=== PATIENT | female | born 1975 ===

== ENCOUNTER 2024-03-26 10:51 | Emergency (ER) | payer BC, SELFPAY ==
[2024-03-26] VITALS (12 sets, daily range): BP systolic 119–144; BP diastolic 78–97; PULSE 78–92; RESP 15–20; TEMP 36.6; O2SAT 97–100
--- NOTE | ~2024-03-26 | XR_ITS ---
EXAMINATION: XR chest 1V portable DATE: 03/26/2024 11:18 INDICATION: Chest pain. TECHNIQUE: A single frontal view of the chest was obtained on 2 radiographs. COMPARISON: Chest 2 views 08/04/2010 FINDINGS: There is no pneumonia, pleural effusion, or pneumothorax. The heart size is normal. IMPRESSION: 1. No acute cardiopulmonary disease. Reviewed, dictated and finalized at location A.
--- NOTE | 2024-03-26 10:52 | ECG_ITS ---
SEE SCANNED COPY FOR CONFIRMED REPORT MTDD
[2024-03-26 11:17] LABS: Basophils Absolute Auto 0.1 K/mm3 (0.0-0.1); Basophils Percent Auto 0.6 % (0.2-1.2); Eosinophils Absolute Auto 0.1 K/mm3 (0-0.3); Hematocrit 39.8 % (37.0-47.0); Hemoglobin 13.4 g/dL (12.0-15.0); Immature Granulocyte Absolute 0.04 K/mm3 (0.00-0.031); Immature Granulocyte Percent A 0.4 % (0-0.5); Lymphocytes Absolute Auto 2.01 K/mm3 (0.9-3.2); Mean Corpuscular HGB Conc 33.7 g/dl (32-36); Mean Corpuscular Hemoglobin 32.4 pg (26-34); Mean Corpuscular Volume 96.1 fl (80-100); Mean Platelet Volume 11.1 fl (7.4-10.4); Monocytes Absolute Auto 0.9 K/mm3 (0.1-0.6); Monocytes Percent Auto 9.3 % (2.6-8.5); Neutrophils Absolute Auto 6.9 K/mm3 (1.3-6.7); Neutrophils Percent Auto 68.7 % (45.5-73.1); Platelet Count Result 260 k/mm3 (150-375); Red Blood Count 4.14 M/mm3 (4.2-5.4); Red Cell Distribution Width 12.6 % (11.5-14.5); White Blood Count 10.1 K/mm3 (4.5-10.0)
[2024-03-26 11:28] LABS: INR 0.9; Prothrombin Time 12.4 Seconds (11.1-14.7)
[2024-03-26 11:29] LABS: Alanine Aminotransferase 16 U/L (6-35); Albumin Level 5.1 g/dL (3.5-5.1); Alkaline Phosphatase 71 U/L (38-126); Anion Gap 9 mmol/L (4-12); Aspartate Amino Transferase 24 U/L (14-36); Bilirubin,Total 0.8 mg/dL (0.2-1.3); Blood Urea Nitrogen 13 mg/dL (7-17); Calcium 10.2 mg/dL (8.4-10.2); Carbon Dioxide 24 mmol/L (22-30); Chloride 102 mmol/L (98-107); Estimated CRCL calculation 74 ml/min; Estimated Glomerular Filt Rate > 60; Glucose 96 mg/dL (65-110); Lipase 64 U/L (23-300); Partial Thromboplastin Time 28.6 Seconds (22.3-36.8); Potassium 3.7 mmol/L (3.4-5.0); Sodium 135 mmol/L (137-145)
[2024-03-26 11:41] LABS: Troponin I < 0.012 ng/mL (0.000-0.034)
[2024-03-26 11:56] LABS: Platelet Estimate Adequate (Adequate)
[2024-03-26 11:57] LABS: Schistocytes None Seen
--- NOTE | 2024-03-26 14:03 | ECG_ITS ---
SEE SCANNED COPY FOR CONFIRMED REPORT MTDD
--- NOTE | 2024-03-26 14:10 | ED.CHESTPAIN ---
HPI - Chest Pain General Chief Complaint: Chest Pain Stated Complaint: I'm concerned with my heart Time Seen by Provider: 03/26/24 11:45 History of Present Illness HPI narrative: This is a 48-year-old female, with no significant past medical history, who presents emergency department complaining of intermittent chest pain for the past week. The patient describes the pain as sharp and cramping, located on the left and intermittently radiating to the back. She denies known aggravating or alleviating factors. This is associated with cough is productive of a small amount of white sputum without blood. She states she has intermittent episodes of nausea and cold sweats, not associated with pain. She has no other complaints at this time. Related Data Allergies Allergy/AdvReac Type Severity Reaction Status Date / Time aspirin Allergy Unknown Verified 03/26/24 12:33 lisinopril AdvReac Severe Swelling Verified 03/26/24 10:58 Review of Systems Review of Systems: All systems reviewed & are unremarkable except as noted in HPI and below (HPI) PMFSH Past Medical History Medical History Anxiety Depression Hypertension Vitamin B12 deficiency Vitamin D deficiency Surgical History Surgical History H/O: hysterectomy History of appendectomy Family History Family History Father CAD (coronary artery disease) Social History Social History Smoking status: Former smoker Tobacco type: cigarettes Second hand tobacco smoke exposure: No Alcohol intake: current Drinks per week: 2 Substance use: never Substance use type: does not use Living arrangements: alone Occupation/Education: occupation Gender identity (if verbalized by the patient): Female Exam Narrative: GENERAL: Well-developed, well-nourished, and in no acute distress. HEAD: Normocephalic, atraumatic. EYES: PERRLA and EOMI. CHEST: Clear to auscultation. No respiratory distress. No wheezes rales or rhonchi. Reproducible chest pain on palpation of the left chest. HEART: Regular rate and rhythm. No murmur heard. Normal peripheral pulses. ABDOMEN: Soft, nontender, nondistended, normal active bowel sounds. EXTREMITIES: Normal range of motion. No edema. SKIN: Warm, dry, no rash. NEURO: Alert and oriented x3. No focal deficit. Moving all 4 limbs spontaneously PSYCH: Normal mood and affect. Course Course Emergency Course: 12:05 - CBC demonstrates mildly elevated white blood cell count of 10.1 but is otherwise unremarkable. Chemistries demonstrate mild hyponatremia with sodium of 135 but otherwise unremarkable. Chest x-ray not concerning for acute cardiopulmonary process. EKG not concerning for ischemia. Initial troponin negative. Heart score 2. Wells' Score 0. The patient PERCs out. Given the patient's family history of heart disease (father, mother and paternal uncle) will obtain a repeat troponin. 14:45 - Repeat troponin negative. Will discharge with recommendation for primary care follow-up. I discussed the findings and recommendations with the patient. Discussed return and emergency precautions including signs/symptoms of ACS and respiratory distress. The patient voiced understanding and agreement with the plan. All questions answered to her satisfaction. Vital Signs Vital signs: Vital Signs Temperature 97.9 F 03/26/24 10:56 Pulse Rate 92 03/26/24 10:56 Respiratory Rate 18 03/26/24 10:56 Blood Pressure 144/97 H 03/26/24 10:56 Pulse Oximetry 100 03/26/24 10:56 Oxygen Delivery Room Air 03/26/24 10:56 Temperature 97.9 F 03/26/24 10:56 Pulse Rate 88 03/26/24 14:19 Respiratory Rate 18 03/26/24 14:19 Blood Pressure 129/83 03/26/24 14:01 Pulse Oximetry 97 03/26/24 14:01 Oxygen Delivery Room Air
[2024-03-26 14:38] LABS: Troponin I < 0.012 ng/mL (0.000-0.034)
== END 2024-03-26 15:44 | disposition home or self-care (01) ==
PROVIDERS: Emergency Provider Preventive Medicine Aerospace Medicine; PCP Physician Assistant Medical
DX: J06.9 Acute upper respiratory infection, unspecified (principal); R07.89 Other chest pain; I10 Essential (primary) hypertension; E53.8 Deficiency of other specified B group vitamins; E55.9 Vitamin D deficiency, unspecified; Z90.710 Acquired absence of both cervix and uterus; Z87.891 Personal history of nicotine dependence; R94.31 Abnormal electrocardiogram [ECG] [EKG]
CPT/HCPCS: 36415; 71045; 80053; 83690; 84484; 85025; 85610; 85730; 93005; 99284